=== PATIENT | female | born 1965 | race Caucasian/White ===

== ENCOUNTER → 2018-03-12 | Outpatient (CLI) | payer BC ==
--- NOTE | 2018-03-14 08:13 | BD ---
EXAMINATION TYPE: Axial Bone Density DATE OF EXAM: 03/14/2018 COMPARISON: NONE CLINICAL HISTORY: 52-year-old female one density screening, disorder of bone, Height: 61.7 in Weight: 178 lbs FRAX RISK QUESTIONS: Secondary Osteoporosis: Menopause before 45: yes at age 32 RISK FACTORS Active: yes Diet low in dairy products/other sources of calcium: yes Postmenopausal woman: age 32 MEDICATIONS: Osteoporosis Medications: yes Which medication: Boniva How Lon + yrs Additional Medications: vit D, oxybutynin cl, spironol, actone, pantoprazole, bupropion, ibandronate sodium EXAM MEASUREMENTS: Bone mineral densitometry was performed using the [employer] System. Bone mineral density as measured about the Lumbar spine is: ----- L1-L4(G/cm2): 1.217 T Score Values are as follows: ----- L2: 0.2 ----- L3: 0.3 ----- L4: 0.7 ----- L1-L4: 0.3 Bone mineral density baseline. Bone mineral density about the R hip (g/cm2): 1.063 Bone mineral density about the L hip (g/cm2): 1.047 T Score values are as follows: -----R Neck: 0.2 -----L Neck: 0.1 -----R Total: 0.2 -----L Total: 0.0 Bone mineral density baseline. IMPRESSION: Normal (Values between +1 and -1 indicate normal bone mass). Consider repeating this study in 5 year s or sooner if there is some new clinical indication. NOTE: T-SCORE=SD OF THE YOUNG ADULT MEAN.
--- NOTE | 2018-03-18 10:25 | MM ---
Reason for exam: screening (asymptomatic). Last mammogram was performed 1 year and 3 months ago. History: Patient has history of endometrial cancer at age 32. Benign excisional biopsy of the right breast, 2004. Taking estrogen beginning at age 48. Physical Findings: A clinical breast exam by your physician is recommended on an annual basis and results should be correlated with mammographic findings. MG Screening Mammo w CAD Bilateral CC and MLO view(s) were taken. Prior study comparison: December 13, 2016, mammogram, performed at [place]. June 25, 2015, bilateral MG screening mammo w CAD. The breast tissue is heterogeneously dense. This may lower the sensitivity of mammography. No significant changes when compared with prior studies. ASSESSMENT: Negative, BI-RAD 1 RECOMMENDATION: Routine screening mammogram of both breasts in 1 year.
== END | disposition home or self-care (01) ==
LOC: RADMAMWWP 15:20
PROVIDERS: ATTEND Obstetrics & Gynecology
DX: Z12.31 Encounter for screening mammogram for malignant neoplasm of breast (principal); Z13.820 Encounter for screening for osteoporosis
CPT/HCPCS: 77067; 77080

== ENCOUNTER → 2019-05-16 | Outpatient (CLI) | payer BC ==
--- NOTE | 2019-05-19 08:09 | MM ---
Reason for exam: screening (asymptomatic). Last mammogram was performed 1 year and 2 months ago. History: Patient has history of endometrial cancer at age 32. Benign excisional biopsy of the right breast, 2005. Taking estrogen beginning at age 48. Physical Findings: A clinical breast exam by your physician is recommended on an annual basis and results should be correlated with mammographic findings. MG Screening Mammo w CAD Bilateral CC and MLO view(s) were taken. Prior study comparison: March 14, 2018, bilateral MG screening mammo w CAD. December 13, 2016, mammogram, performed at [place]. The breast tissue is heterogeneously dense. This may lower the sensitivity of mammography. Grouped calcifications left upper outer quadrant now either increased or now better seen. ASSESSMENT: Incomplete: need additional imaging evaluation, BI-RAD 0 RECOMMENDATION: Special view mammogram of the left breast. (magnification) If lesion persists on supplemental views, image directed ultrasound is recommended. [facility] will attempt to contact patient to return for supplemental views and ultrasound if indicated. EZIO
== END | disposition home or self-care (01) ==
LOC: RADMAMWWP 06:51
PROVIDERS: ATTEND Obstetrics & Gynecology
DX: Z12.31 Encounter for screening mammogram for malignant neoplasm of breast (principal)
CPT/HCPCS: 77067

== ENCOUNTER → 2019-05-28 | Outpatient (CLI) | payer BC ==
--- NOTE | 2019-05-28 12:08 | MM ---
Reason for exam: additional evaluation requested from abnormal screening. Last mammogram was performed less than 1 month ago. History: Patient has history of endometrial cancer at age 32. Benign excisional biopsy of the right breast, 2005. Taking estrogen beginning at age 48. Physical Findings: Nurse did not find any significant physical abnormalities on exam. MG 3D Work Up W/Cad LT CC with magnification, ML with magnification, and ML view(s) were taken of the left breast. Prior study comparison: May 16, 2019, bilateral MG screening mammo w CAD. March 14, 2018, bilateral MG screening mammo w CAD. Finding: There are grouped/clustered fine calcifications in the upper outer quadrant, posterior position of the left breast. These results were verbally communicated with the patient and result sheet given to the patient on 05/28/19. ASSESSMENT: Suspicious, BI-RAD 4 RECOMMENDATION: Stereotactic core biopsy of the left breast. (left breast calcifications) Called Dr. Jade with mammographic findings and has scheduled an appointment for the patient for 07/10/19 at 9:[address] Garcia. Biopsy scheduled for 06/19/19 at 10:20. PRELIMINARY REPORT CALLED AND FAXED TO DR. GARCIA ON 05/28/19.
== END | disposition home or self-care (01) ==
LOC: RADMAMWWP 10:12
PROVIDERS: ATTEND Obstetrics & Gynecology
DX: R92.8 Other abnormal and inconclusive findings on diagnostic imaging of breast (principal)
CPT/HCPCS: 77061; 77065

== ENCOUNTER → 2019-07-10 | Day surgery (SDC) | payer BC ==
[2019-06-19 10:20] VITALS: RESP 16; BMI 32.8
[2019-07-10 11:18] VITALS: BP 106/65; PULSE 61; TEMP 98.1
--- NOTE | 2019-07-10 16:35 | MM ---
EXAMINATION TYPE: MG stereo VAD BX LT DATE OF EXAM: 07/10/2019 COMPARISON: 05/16/2019 and 05/28/2019 CLINICAL HISTORY: 54-year-old female with left breast microcalcifications TECHNIQUE: Stereotactic guided core biopsy of the 2:00 left breast. FINDINGS: The procedure of stereotactic guided core biopsy was explained to the patient. Benefits, alternatives, and risks were discussed. An informed consent was then obtained. The shortness pathway for biopsy was chosen. Shortness pathway was a lateral approach. However, calcifications cannot be well-demonstrated in the targeting window. A CC from above approach was utilized. I performed the localization localization followed by the remainder of the procedure. A vacuum assisted biopsy gun was used to obtain multiple core samples. The patient tolerated the procedure well without any immediate complication. The patient was kept in the radiology department for short stay after the procedure and then discharged home in stable condition. Targeted calcifications are identified in specimen mammogram. Post biopsy mammogram shows the clip to appear in satisfactory position relative to the targeted area of concern on the preprocedure images at the 2:00 position. IMPRESSION: SUCCESSFUL, UNCOMPLICATED STEREOTACTIC GUIDED CORE BIOPSY OF 2:00 LEFT BREAST MICROCALCIFICATIONS. INTERMEDIATE SUSPICION. FULL PATHOLOGY RESULTS TO FOLLOW. 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 An appropriately controlled immunohistochemical panel to evaluate the in situ component for microinvasion is performed. Smooth muscle myosin heavy chain (SMMHC), p63 and Calponin document an intact myoepithelial layer around ducts. Lack of diffuse or mosaic CK5/6 staining supports the diagnosis of carcinoma in situ. Recommendation Surgical consult of the left breast. Definitive surgical/medical management. EZIO
== END ==
LOC: RADMAMWWP 06-19 09:48
PROVIDERS: ATTEND Surgery
DX: D05.82 Other specified type of carcinoma in situ of left breast (principal)
CPT/HCPCS: 88305; 88342; 88341; 19081; A4648; J2001

== ENCOUNTER 2019-08-11 11:08 | Day surgery (SDC) | payer BC ==
[2019-08-04 15:51] VITALS: BMI 31.8
[~2019-08-11 11:08] MED LIST: HEPARIN SODIUM,PORCINE 5,000 UNIT/ML 1 ML VIAL SQ ONE; HYDROmorphone 0.5 MG/0.5 ML SYRINGE IVP PRN; LIDOCAINE 1% 20 ML VIAL (10MG/ML) FOR IV START INTRADERMA PRN; ONDANSETRON 4 MG/2 ML VIAL IVP ONE; Pre Op ABX Message 1 EACH MISC MISCELLANE ONE
[2019-08-11] MEDS: LACTATED RINGERS 1,000 ML IV SCH ×2 (11:56→12:17)
[2019-08-11] MEDS ORDERED: ALPRAZolam 0.5 MG TAB PO ONE (12:05)
--- NOTE | 2019-08-11 13:15 | P.GSHP ---
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 She is asymptomatic. Past Medical History Past Medical History: Cancer, GERD/Reflux Additional Past Medical History / Comment(s): LT BREAST CANCER-NEW DX History of Any Multi-Drug Resistant Organisms: None Reported Past Surgical History: Breast Surgery, Section, Hysterectomy Additional Past Surgical History / Comment(s): right breast biopsy 2004-benign, Past Anesthesia/Blood Transfusion Reactions: No Reported Reaction Smoking Status: Never smoker - Past Family History Father Family Medical History: Cancer Medications and Allergies Home Medications Medication Instructions Recorded Confirmed Type Cyanocobalamin (Vitamin B-12) 2,000 mcg PO DAILY 06/10/19 08/04/19 History [Vitamin B-12] FLUoxetine HCL [PROzac] 10 mg PO DAILY 06/10/19 08/04/19 History Ibandronate Sodium 150 mg PO QMONTH 06/10/19 08/04/19 History Pantoprazole [Protonix] 40 mg PO DAILY 06/10/19 08/04/19 History buPROPion HCL [buPROPion HCL SR] 150 mg PO DAILY 06/10/19 08/04/19 History Allergies Allergy/AdvReac Type Severity Reaction Status Date / Time silicone Allergy Rash/Hives Verified 08/11/19 11:51 epinephrine AdvReac Chest Pain Verified 08/11/19 11:51 Surgical - Exam Vital Signs Temp Pulse Resp BP Pulse Ox 98.1 F 68 16 120/64 98 08/11/19 11:58 08/11/19 11:58 08/11/19 11:58 08/11/19 11:58 08/11/19 11:58 Physical exam: General: Well-developed, well-nourished HEENT: Normocephalic, sclerae nonicteric Right breast: No masses, no adenopathy Left breast: No masses, no adenopathy Abdomen: Nontender, nondistended Extremities: No edema Neuro: Alert and oriented Assessment and Plan (1) DCIS (ductal carcinoma in situ) Narrative/Plan: Will proceed with left breast lumpectomy with wire localization. Risks of bleeding, infection, scarring, numbness, dimpling, need for additional surgery, positive margins, seroma reviewed. She understands and wishes to proceed. Current Visit: Yes Status: Acute Code(s): D05.10 - INTRADUCTAL CARCINOMA IN SITU OF UNSPECIFIED BREAST SNOMED Code(s): 258945415
--- NOTE | 2019-08-11 13:16 | P.NAPBC ---
[facility] - [facility] Was patient's case review presented at [facility] tumor board? If no, comment.: No Was patient's pathology reviewed at [facility]? If no, comment.: Yes Was breast conservation surgery offered? If no, comment.: Yes Was sentinel node biopsy offered? If no, comment.: No (na) Was diagnosis confirmed by percutaneous core biopsy? If no, comment.: Yes Is patient mastectomy patient?: No Was a preop referral to reconstructive surgeon offered?: Yes [facility] Comments: 0 Clinical Stage: Stage 0
[2019-08-11] MEDS ORDERED: LIDOCAINE 1% INJ 10MG/ML (20 ML MDV) SQ ONE ×2 (13:46→13:51)
[2019-08-11] MEDS ORDERED: BUPIVACAINE (PF) 0.25% 30 ML VIAL SQ ONE ×2 (14:20→15:05)
[2019-08-11] MEDS ORDERED: KETOROLAC 30 MG/ML 1 ML VIAL ONE (14:41)
[2019-08-11] MEDS ORDERED: PROPOFOL 10 MG/ML 20 ML VIAL IV ONE (14:41)
[2019-08-11] MEDS ORDERED: MIDAZOLAM 2 MG/2 ML VIAL ONE (14:41)
[2019-08-11] MEDS ORDERED: LIDOCAINE 1% INJ 10MG/ML (20 ML MDV) ONE (14:41)
[2019-08-11] MEDS ORDERED: SUCCINYLCHOLINE CHLORIDE 100 MG/5 ML SYR IV ONE (14:41)
[2019-08-11] MEDS ORDERED: fentaNYL (PF) 50 MCG/ML 2 ML AMP ONE (14:41)
[2019-08-11] MEDS ORDERED: SODIUM CHLORIDE 0.9% 50 ML with ceFAZolin 2,000 MG IV ONE ×2 (14:45)
[2019-08-11] MEDS ORDERED: ONDANSETRON 4 MG/2 ML VIAL IVP ONE (15:48)
[2019-08-11 15:58] VITALS: TEMP 97.7
[2019-08-11] MEDS ORDERED: LACTATED RINGERS 1,000 ML IV ONE (16:01)
[2019-08-11 16:32] VITALS: RESP 18
[2019-08-11] MEDS ORDERED: NALOXONE 0.4 MG/ML 1 ML VIAL IV PRN (16:39)
--- NOTE | 2019-08-11 16:41 | P.OP ---
Date of Procedure: 08/11/19 Procedure(s) Performed: PREOPERATIVE DIAGNOSIS: Left breast cancer POSTOPERATIVE DIAGNOSIS: Same PROCEDURE: Left breast lumpectomy with wire localization SURGEON: Jose EBL: 5 mL ANESTHESIA: General COMPLICATIONS: None OPERATIVE PROCEDURE: Patient was placed on the operating room table in the supine position. The patient's breast was prepped and draped in usual sterile fashion. A curvilinear incision was made adjacent to the wire entrance site at the 3:00 location. I followed the wire down into the breast tissue. The breast tissue around the tip of the wire was fully excised using electrocautery. Margins of 1.5 cm to 2 cm were attempted to be achieved. The lumpectomy was painted the 6 appropriately predetermined colors. The specimen was sent for specimen radiogram. The clip was present within the specimen. The subcutaneous tissues were inspected. No bleeding was seen. Clips were used to demarcate the lumpectomy site. The subcutaneous tissues were closed using 3-0 Vicryl sutures. The skin was closed using a running 4-0 Monocryl stitch. Skin glue was then applied. DISPOSITION: Stable to recovery room
[2019-08-11 16:52] VITALS: BP 107/60; PULSE 72
--- NOTE | 2019-08-12 08:37 | MM ---
EXAMINATION TYPE: MG pre op needle loc LT, MG surgical specimen LT DATE OF EXAM: 08/11/2019 COMPARISON: Mammogram July 10, 2019 and older studies. CLINICAL HISTORY: Positive stereo biopsy, papillary carcinoma in situ with an extensive mucinous component TECHNIQUE: Needle localization with wire placement and surgical excision of area of concern in the left breast. FINDINGS: The procedure of needle localization with wire placement and than surgical excision was explained to the patient. Benefits, alternatives, and risks were discussed. An informed consent was then obtained. The shortest pathway for procedure was chosen. Shortest pathway was lateral approach. The overlying skin was prepped and draped in usual sterile fashion. Lidocaine was used as anesthetic into the skin and subcutaneous tissue up to the level of area of concern. A 5 cm needle was used. It was placed via a lateral approach under mammographic guidance. Subsequent 90 degrees mammogram show the needle to be in satisfactory position relative to the targeted area. At this point, wire was placed and the needle was withdrawn. The wire was fixed to patient's skin. Images were marked for surgeon. The patient tolerated the procedure well without any immediate complication. The patient was kept in the radiology department for short stay after the procedure and then taken to surgery for surgical excision. Targeted biopsy clip along with some residual calcifications and wire are identified in specimen mammogram. The patient was kept in hospital for short stay after the procedure and then discharged home in stable condition. IMPRESSION: Successful, uncomplicated needle localization with wire placement and surgical excision of targeted biopsy clip in the left breast, full pathology results to follow. Pathology Results: High Risk LEFT BREAST, NEEDLE LOCALIZATION EXCISION/BIOPSY: Negative for residual duct carcinoma in situ. Residual breast parenchyma shows florid duct hyperplasia, radial scar, usual intra ductal hyperplasia and intraductal papillomatosis. Recommendation Surgical consultation of the left breast. Continued surgical management. EZIO
== END 2019-08-11 17:12 | disposition home or self-care (01) ==
LOC: OR 11:08
PROVIDERS: ATTEND Surgery
DX: D24.2 Benign neoplasm of left breast (principal); Z17.0 Estrogen receptor positive status [ER+]; Z98.891 History of uterine scar from previous surgery; Z90.710 Acquired absence of both cervix and uterus; Z98.890 Other specified postprocedural states; Z85.42 Personal history of malignant neoplasm of other parts of uterus; Z86.19 Personal history of other infectious and parasitic diseases; K21.9 Gastro-esophageal reflux disease without esophagitis; Z79.83 Long term (current) use of bisphosphonates; Z79.899 Other long term (current) drug therapy; Z91.048 Other nonmedicinal substance allergy status; Z88.4 Allergy status to anesthetic agent; F99 Mental disorder, not otherwise specified
CPT/HCPCS: 19301; 88307; 76098; 19281; J2250; J2405; J0690; J2001; J3010; J1885; J0330; J2704

== ENCOUNTER → 2019-10-28 | Outpatient (CLI) | payer BC ==
--- NOTE | 2019-10-28 12:50 | CT ---
EXAMINATION TYPE: CT brain wo con DATE OF EXAM: 10/28/2019 COMPARISON: None HISTORY: Severe GTZ, dizziness CT DLP: 981.7 mGycm Automated exposure control for dose reduction was used. CT of the brain performed using departmental protocol FINDINGS: No abnormality. Brain density is normal. No hydrocephalus or hemorrhage. Calvarium is intact. Paranas al sinuses and mastoid air cells are well aerated. IMPRESSION: NORMAL NONCONTRAST HEAD CT
== END ==
LOC: RADCTMAIN 12:12
PROVIDERS: ATTEND Family Medicine
DX: R51 Headache (principal)
CPT/HCPCS: 70450

== ENCOUNTER 2019-10-30 08:34 | Emergency (ER) | payer BC ==
[2019-10-30 08:39] VITALS: TEMP 98.3
[2019-10-30] MEDS ORDERED: METOCLOPRAMIDE 5 MG/ML 2 ML VIAL IVP STA (08:53)
[2019-10-30] MEDS ORDERED: diphenhydrAMINE 50 MG/ML 1 ML VIAL IVP STA (08:53)
[2019-10-30] MEDS ORDERED: KETOROLAC 30 MG/ML 1 ML VIAL IVP STA (08:53)
[2019-10-30] MEDS ORDERED: SODIUM CHLORIDE 0.9% 1,000 ML IV STA (08:54)
--- NOTE | 2019-10-30 09:00 | ED ---
General Adult HPI - General Chief complaint: Headache Stated complaint: headache Time Seen by Provider: 10/30/19 08:41 Source: patient, RN notes reviewed Mode of arrival: ambulatory Limitations: no limitations - History of Present Illness Initial comments: 54-year-old female with a past medical history of GERD, breast cancer presents to the emergency department for a chief complaint of headache. Patient states she has had a persistent headache for 7 days. Patient states this started last Sunday. States that throughout the day she started to have a mild headache that gradually became a pounding headache. States the headache gradual onset. Denies any maximal intensity at onset. Denies any neck stiffness or pain. Does admit to nausea denies vomiting. States it is painful to look out of the corners of her eyes. Otherwise denies visual changes. States the headache is across the top of her head and on the bilateral temporal areas. Currently rating the pain at an 8 out of 10. States it does go down to a 5 at times. Denies any weakness of the extremities. Patient states she saw her doctor and had an outpatient CT obtained which was normal. Patient did take Imitrex but it did not help. States this does not feel like her normal migraines. Patient has no other complaints at this time including shortness of breath, chest pain, abd ominal pain, nausea or vomiting, or visual changes. - Related Data Home Medications Medication Instructions Recorded Confirmed Cyanocobalamin (Vitamin B-12) 2,000 mcg PO DAILY 06/10/19 08/04/19 [Vitamin B-12] FLUoxetine HCL [PROzac] 10 mg PO DAILY 06/10/19 08/04/19 Ibandronate Sodium 150 mg PO QMONTH 06/10/19 08/04/19 Pantoprazole [Protonix] 40 mg PO DAILY 06/10/19 08/04/19 buPROPion HCL [buPROPion HCL SR] 150 mg PO DAILY 06/10/19 08/04/19 Allergies Allergy/AdvReac Type Severity Reaction Status Date / Time silicone Allergy Rash/Hives Verified 10/30/19 08:39 epinephrine AdvReac Chest Pain Verified 10/30/19 08:39 Review of Systems ROS Statement: Those systems with pertinent positive or pertinent negative responses have been documented in the HPI. ROS Other: All systems not noted in ROS Statement are negative. Past Medical History Past Medical History: Cancer, GERD/Reflux Additional Past Medical History / Comment(s): LT BREAST CANCER-NEW DX uterine ca History of Any Multi-Drug Resistant Organisms: None Reported Past Surgical History: Breast Surgery, Section, Hysterectomy Additional Past Surgical History / Comment(s): right breast biopsy 2005-benign, Past Anesthesia/Blood Transfusion Reactions: No Reported Reaction Past Psychological History: Depression Smoking Status: Never smoker Past Alcohol Use History: Rare Past Drug Use History: None Reported - Past Family History Father Family Medical History: Cancer General Exam Limitations: no limitations General appearance: alert, in no apparent distress Head exam: Present: atraumatic, normocephalic, normal inspection Eye exam: Present: normal appearance, PERRL, EOMI. Absent: scleral icterus, conjunctival injection, periorbital swelling ENT exam: Present: normal exam, normal oropharynx, mucous membranes moist, TM's normal bilaterally, normal external ear exam Neck exam: Present: normal inspection, full ROM. Absent: tenderness, meningismus, lymphadenopathy Respiratory exam: Present: normal lung sounds bilaterally. Absent: respiratory distress, wheezes, rales, rhonchi, stridor Cardiovascular Exam: Present: regular rate, normal rhythm, normal heart sounds. Absent: systolic murmur, diastolic murmur, rubs, gallop, clicks GI/Abdominal exam: Present: soft, normal bowel sounds. Absent: distended, tenderness, guarding, rebound, rigid Neurological exam: Present: alert, oriented X3, normal gait, other (CGS 15) Expanded Patient oriented to: Present: person, place, time Speech: Present: fluid speech Cranial nerves: EOM's Intact: Normal, Tongue Deviation: Normal, Nystagmus: Normal, Facial Sensation: Normal Cerebellar function: Finger to Nose: Normal Upper motor neuron: Pronator Drift: Normal Sensory exam: Upper Extremity Light Touch: Normal, Upper Extremity Pin Prick: Normal, Lower Extremity Pin Prick: Normal, Lower Extremity Temperature: Normal Motor strength exam: RUE: 5, LUE: 5, RLE: 5, LLE: 5 Eye Response: (4) open spontaneously Motor Response: (6) obeys commands Verbal Response: (5) oriented [place] Total: 15 Psychiatric exam: Present: normal affect, normal mood Course Vital Signs 10/30/19 08:36 Temperature 98.3 F Pulse Rate 66 Respiratory 18 Rate Blood Pressure 131/83 O2 Sat by Pulse 95 Oximetry - Reevaluation(s) Reevaluation #1: 10/30/19 09:03 Discussed case in detail with Dr. Weston. Reviewed CT report from 2 days ago which is as follows: CT of the brain was obtained which showed no abnormality. Brain density is normal. No hydrocephalus or hemorrhage. Calvarium is intact. Paranasal sinuses and mastoid air cells are well aerated. Normal noncontrast head CT. Medical Decision Making - Medical Decision Making 54-year-old female presents for headache. Patient was seen and evaluated upon arrival. No focal neurologic deficits. Patient is well-appearing. Currently rating the pain as an 8 out of 10. History of gradual onset. No maximal intensity at onset. No neck pain or stiffness. No fevers or chills. CT was reviewed from 2 days ago and was normal. Patient was given pain medication which included Toradol Reglan Benadryl and fluids here in the emergency department. She had significant improvement in pain. She is currently rating her pain at a 3 out of 10. I did offer further analgesics which she refuses at this time stating she feels much better. She does agree to a steroid as this may help recurrence of headache. I discussed that she needs to follow up with primary care and possibly neurology if this continues. Discussed that she may benefit from an MRI. She will return if she has any worsening symptoms over the weekend.I discussed this case with attending Dr. Weston who agrees with this assessment and treatment plan. Disposition Clinical Impression: Headache Disposition: HOME SELF-CARE Condition: Good Instructions (If sedation given, give patient instructions): Acute Headache (ED) Additional Instructions: Please follow-up with primary care in 1-2 days. You may benefit from MRI. If this continues you may also benefit from seeing a neurologist. If you have worsening symptoms please return to the emergency department. Is patient prescribed a controlled substance at d/c from ED?: No Referrals: Deepak Ang [Primary Care Provider] - 1-2 days Time of Disposition: 10:46
[2019-10-30] MEDS ORDERED: DEXAMETHASONE SOD PHOSPHATE 10 MG/ML 1 ML VIAL IV STA (10:39)
[2019-10-30 11:02] VITALS: BP 125/78; PULSE 62; RESP 20
== END 2019-10-30 11:04 | disposition home or self-care (01) ==
LOC: EC 08:34
DX: R51 Headache (principal); K21.9 Gastro-esophageal reflux disease without esophagitis; F32.9 Major depressive disorder, single episode, unspecified; Z79.899 Other long term (current) drug therapy; Z88.8 Allergy status to other drugs, medicaments and biological substances; Z91.040 Latex allergy status; Z98.890 Other specified postprocedural states; Z85.3 Personal history of malignant neoplasm of breast; Z85.42 Personal history of malignant neoplasm of other parts of uterus
CPT/HCPCS: 96374; 96375 ×3; 99283; J1200; J1100; J2765; J1885

== ENCOUNTER 2019-11-12 10:26 | Emergency (ER) | payer BC ==
[2019-11-12 10:47] VITALS: RESP 18
[2019-11-12] MEDS ORDERED: PROMETHAZINE INJ 25 MG in SODIUM CHLORIDE 0.9% 50 ML IVPB STA (11:37)
[2019-11-12] MEDS ORDERED: SODIUM CHLORIDE 0.9% 500 ML 500 ML IV ONE (11:37)
[2019-11-12] MEDS ORDERED: diphenhydrAMINE 50 MG/ML 1 ML VIAL IVP STA ×2 (11:37→13:13)
[2019-11-12] MEDS ORDERED: KETOROLAC 60 MG/2 ML VIAL IVP STA (11:37)
--- NOTE | 2019-11-12 11:46 | ED ---
General Adult HPI - General Chief complaint: Headache Stated complaint: headache/blurred vision Time Seen by Provider: 11/12/19 10:55 Source: patient, RN notes reviewed, old records reviewed Mode of arrival: ambulatory Limitations: no limitations - History of Present Illness Initial comments: This is a 54-year-old female who complains of a headache since '. Patient states she's had an MRI and CAT scan and they both were normal. Patient states she follow-up with ophthalmology today because she was having some blurred vision only in the morning and he told her her optic nerves showed some edema. He is sent to the emergency department to investigate for possible pseudotumor cerebri. Patient states she has no other problems other than the slight blurred vision and headache. Patient states occasionally she has felt a little off balance as well. Patient denies any near syncopal or syncopal episode. Patient denies any chest pain difficulty breathing first breath per patient any numbness or weakness or facial drooping. Patient denies any speech problem per patient denies any abdominal pain. Patient denies nausea vomiting d iarrhea. - Related Data Home Medications Medication Instructions Recorded Confirmed Cyanocobalamin (Vitamin B-12) 2,000 mcg PO Q48H 06/10/19 11/12/19 [Vitamin B-12] Pantoprazole [Protonix] 40 mg PO DAILY 06/10/19 11/12/19 Oxybutynin Chloride [Ditropan] 5 mg PO DAILY 11/12/19 11/12/19 SUMAtriptan SUCCINATE [Imitrex] 100 mg PO BID PRN 11/12/19 11/12/19 buPROPion HCL [Wellbutrin XL] 150 mg PO DAILY 11/12/19 11/12/19 Allergies Allergy/AdvReac Type Severity Reaction Status Date / Time silicone Allergy Rash/Hives Verified 11/12/19 12:03 epinephrine AdvReac Chest Pain Verified 11/12/19 12:03 Review of Systems ROS Statement: Those systems with pertinent positive or pertinent negative responses have been documented in the HPI. ROS Other: All systems not noted in ROS Statement are negative. Past Medical History Past Medical History: Cancer, GERD/Reflux Additional Past Medical History / Comment(s): LT BREAST CANCER-NEW DX uterine ca History of Any Multi-Drug Resistant Organisms: None Reported Past Surgical History: Breast Surgery, Section, Hysterectomy Additional Past Surgical History / Comment(s): right breast biopsy 2005-benign, Past Anesthesia/Blood Transfusion Reactions: No Reported Reaction Past Psychological History: Depression Smoking Status: Never smoker Past Alcohol Use History: Rare Past Drug Use History: None Reported - Past Family History Father Family Medical History: Cancer General Exam - General Exam Comments Initial Comments: GENERAL: Patient is well-developed and well-nourished. Patient is nontoxic and well- hydrated and is in mild distress. ENT: Neck is soft and supple. No significant lymphadenopathy is noted. Oropharynx is clear. Moist mucous membranes. Neck has full range of motion without eliciting any pain. EYES: The sclera were anicteric and conjunctiva were pink and moist. Extraocular movements were intact and pupils were equal round and reactive to light. Eyelids were unremarkable. PULMONARY: Unlabored respirations. Good breath sounds bilaterally. No audible rales rhonchi or wheezing was noted. CARDIOVASCULAR: There is a regular rate and rhythm without any murmurs gallops or rubs. ABDOMEN: Soft and nontender with normal bowel sounds. SKIN: Skin is clear with no lesions or rashes and otherwise unremarkable. NEUROLOGIC: Patient is alert and oriented x3. Cranial nerves II through XII are grossly intact. Motor and sensory are also intact. Normal speech, volume and content. Symmetrical smile. MUSCULOSKELETAL: Normal extremities with adequate strength and full range of motion. No lower extremity swelling or edema. No calf tenderness. LYMPHATICS: No significant lymphadenopathy is noted PSYCHIATRIC: Normal psychiatric evaluation. Limitations: no limitations Course Vital Signs 11/12/19 11/12/19 10:46 12:13 Temperature 98.3 F Pulse Rate 79 68 Respiratory 18 18 Rate Blood Pressure 117/76 127/79 O2 Sat by Pulse 96 99 Oximetry Medical Decision Making - Medical Decision Making EKG shows sinus bradycardia 59 bpm VT interval 156 QRS 82 QT interval 396 QTC is 392. Patient's EKG shows no ST segment elevation or depression. I spoke with the patient's primary medical care doctor as well as the anesthesiologist and they were going to set up an outpatient lumbar puncture to determine if the patient had pseudotumor cerebri. Patient headache was substantially reduced after medication in the emergency department. Patient understood and will follow-up with primary medical care doctor. Patient has no neurologic deficit while in the emergency department. Disposition Clinical Impression: Chronic headache Disposition: HOME SELF-CARE Condition: Good Instructions (If sedation given, give patient instructions): General Headache (ED) Additional Instructions: Patient is to return to emergency department if she has any neurologic deficit or if there is any new or worsening symptoms. Patient is felt the primary medical care doctor to set up a possible lumbar pun cture as an outpatient. Is patient prescribed a controlled substance at d/c from ED?: No Referrals: Deepak Ang [Primary Care Provider] - 11/13/19
[2019-11-12 13:51] VITALS: BP 128/83; PULSE 73; TEMP 98
== END 2019-11-12 13:49 | disposition home or self-care (01) ==
LOC: EC 10:26
DX: R51 Headache (principal); H53.8 Other visual disturbances; H47.10 Unspecified papilledema; R00.1 Bradycardia, unspecified; K21.9 Gastro-esophageal reflux disease without esophagitis; Z85.3 Personal history of malignant neoplasm of breast; Z85.42 Personal history of malignant neoplasm of other parts of uterus; Z79.899 Other long term (current) drug therapy; Z88.8 Allergy status to other drugs, medicaments and biological substances; Z91.048 Other nonmedicinal substance allergy status
CPT/HCPCS: 99284; 96365; 96375 ×2; 96376; J1200; J2550; J1885

== ENCOUNTER → 2020-06-01 | Outpatient (CLI) | payer BC ==
--- NOTE | 2020-06-01 11:05 | MM ---
Reason for exam: additional evaluation requested from prior study. Last mammogram was performed 1 year ago. History: Patient has history of breast cancer at age 54, has history of high-risk lesion on a previous biopsy at age 54, and has history of endometrial cancer at age 32. High risk MG pre op needle loc LT of the left breast, August 11, 2019. Lumpectomy of the left breast, August 11, 2019. Malignant MG stereo VAD BX LT of the left breast, July 10, 2019. Benign excisional biopsy of the right breast, 2004. Taking estrogen beginning at age 48. Physical Findings: Nurse did not find any significant physical abnormalities on exam. MG 3D Diag Mammo W/Cad BRITTNEY Bilateral CC and MLO view(s) were taken. Prior study comparison: May 28, 2019, left breast MG 3d work up w/cad LT. May 16, 2019, bilateral MG screening mammo w CAD. The breast tissue is heterogeneously dense. This may lower the sensitivity of mammography. Post surgical changes left upper outer quadrant. No significant new findings when compared with previous films. These results were verbally communicated with the patient and result sheet given to the patient on 06/01/20. ASSESSMENT: Benign, BI-RAD 2 RECOMMENDATION: Follow-up diagnostic mammogram of both breasts in 1 year. Manage on a clinical basis with regard to pain.
--- NOTE | 2020-06-01 11:07 | USB ---
Reason for exam: additional evaluation requested from prior study. History: Patient has history of breast cancer at age 54, has history of high-risk lesion on a previous biopsy at age 54, and has history of endometrial cancer at age 32. High risk MG pre op needle loc LT of the left breast, August 11, 2019. Lumpectomy of the left breast, August 11, 2019. Malignant MG stereo VAD BX LT of the left breast, July 10, 2019. Benign excisional biopsy of the right breast, 2004. Taking estrogen beginning at age 48. US Breast BILAT Right complete breast ultrasound includes all four quadrants, the retroareolar region and axilla. Finding demonstrates a 0.7 x 0.4 x 0.5cm cystic cluster at 4 o'clock. Left complete breast ultrasound includes all four quadrants, the retroareolar region and axilla. Finding demonstrates duct type appearance at 5 o'clock. These results were verbally communicated with the patient and result sheet given to the patient on 06/01/20. ASSESSMENT: Probably benign, BI-RAD 3 RECOMMENDATION: Ultrasound of both breasts in 6 months. Manage on a clinical basis with regard to pain.
== END | disposition home or self-care (01) ==
LOC: RADMAMWWP 08:45
PROVIDERS: ATTEND Surgery
DX: N64.4 Mastodynia (principal); Z85.3 Personal history of malignant neoplasm of breast
CPT/HCPCS: 77062; 77066

== ENCOUNTER → 2020-11-30 | Outpatient (CLI) | payer BC ==
--- NOTE | 2020-11-30 11:08 | USB ---
Reason for exam: follow-up at short interval from prior study. History: Patient has history of breast cancer at age 54, has history of high-risk lesion on a previous biopsy at age 54, and has history of endometrial cancer at age 32. High risk MG pre op needle loc LT of the left breast, August 11, 2019. Lumpectomy of the left breast, August 11, 2019. Malignant MG stereo VAD BX LT of the left breast, July 10, 2019. Benign excisional biopsy of the right breast, 2004. Taking estrogen beginning at age 48. Physical Findings: Nurse did not find any significant physical abnormalities on exam. US Breast BILAT Right complete breast ultrasound includes all four quadrants, the retroareolar region and axilla. Finding demonstrates a 5 x 2 x 7mm oval, mixed lesion at 3 o'clock and duct ectasia at the posterior nipple. Left complete breast ultrasound includes all four quadrants, the retroareolar region and axilla. Finding demonstrates duct ectasia at the posterior nipple. These results were verbally communicated with the patient and result sheet given to the patient on 11/30/20. ASSESSMENT: Probably benign, BI-RAD 3 RECOMMENDATION: Ultrasound of the right breast in 6 months.
== END | disposition home or self-care (01) ==
LOC: RADUSWWP 08:58
PROVIDERS: ATTEND Surgery
DX: N60.41 Mammary duct ectasia of right breast (principal); N60.42 Mammary duct ectasia of left breast; N64.89 Other specified disorders of breast; Z85.3 Personal history of malignant neoplasm of breast

== ENCOUNTER → 2021-06-02 | Outpatient (CLI) | payer BC ==
--- NOTE | 2021-06-02 11:46 | MM ---
Reason for exam: additional evaluation requested from prior study. Last mammogram was performed 1 year ago. History: Patient has history of breast cancer at age 54, has history of high-risk lesion on a previous biopsy at age 54, and has history of endometrial cancer at age 32. High risk MG pre op needle loc LT of the left breast, August 11, 2019. Lumpectomy of the left breast, August 11, 2019. Malignant MG stereo VAD BX LT of the left breast, July 10, 2019. Benign excisional biopsy of the right breast, 2004. Physical Findings: Nurse did not find any significant physical abnormalities on exam. MG 3D Diag Mammo W/Cad BRITTNEY Bilateral CC and MLO view(s) were taken. Prior study comparison: June 01, 2020, bilateral MG 3d diag mammo w/cad [facility]. May 28, 2019, left breast MG 3d work up w/cad LT. May 16, 2019, bilateral MG screening mammo w CAD. March 14, 2018, bilateral MG screening mammo w CAD. The breast tissue is heterogeneously dense. This may lower the sensitivity of mammography. No significant new findings when compared with previous films. These results were verbally communicated with the patient and result sheet given to the patient on 06/02/21. ASSESSMENT: Benign, BI-RAD 2 RECOMMENDATION: Follow-up diagnostic mammogram of both breasts in 1 year.
== END | disposition home or self-care (01) ==
LOC: RADMAMWWP 10:40
PROVIDERS: ATTEND Surgery
DX: R92.8 Other abnormal and inconclusive findings on diagnostic imaging of breast (principal); Z85.3 Personal history of malignant neoplasm of breast
CPT/HCPCS: 77062; 77066

== ENCOUNTER → 2022-01-13 | Outpatient (CLI) | payer BC ==
--- NOTE | 2022-01-13 14:20 | MM ---
Reason for exam: follow-up at short interval from prior study. Last mammogram was performed 7 months ago. History: Patient has history of breast cancer at age 54, has history of high-risk lesion on a previous biopsy at age 54, and has history of endometrial cancer at age 32. High risk MG pre op needle loc LT of the left breast, August 11, 2019. Lumpectomy of the left breast, August 11, 2019. Malignant MG stereo VAD BX LT of the left breast, July 10, 2019. Benign excisional biopsy of the right breast, 2004. Physical Findings: A clinical breast exam by your physician is recommended on an annual basis and results should be correlated with mammographic findings. MG 3D Diag Mammo W/Cad LT CC and MLO view(s) were taken of the left breast. Prior study comparison: June 02, 2021, bilateral MG 3d diag mammo w/cad BRITTNEY. June 01, 2020, bilateral MG 3d diag mammo w/cad BR[facility]NEY. The breast tissue is heterogeneously dense. This may lower the sensitivity of mammography. There is no discrete abnormality including area of concern. Stable post operative changes left breast. No significant new findings when compared with previous films. Results were given to the patient verbally at the time of the exam. ASSESSMENT: Incomplete: need additional imaging evaluation, BI-RAD 0 RECOMMENDATION: Ultrasound of the left breast.
--- NOTE | 2022-01-13 14:21 | USB ---
History: Patient has history of breast cancer at age 54, has history of high-risk lesion on a previous biopsy at age 54, and has history of endometrial cancer at age 32. High risk MG pre op needle loc LT of the left breast, August 11, 2019. Lumpectomy of the left breast, August 11, 2019. Malignant MG stereo VAD BX LT of the left breast, July 10, 2019. Benign excisional biopsy of the right breast, 2004. Physical Findings: A clinical breast exam by your physician is recommended on an annual basis and results should be correlated with mammographic findings. US Breast Limited LT Left limited breast ultrasound including focal area of concern, retroareolar and axilla demonstrates mildly prominent ducts. Results were given to the patient verbally at the time of the exam. ASSESSMENT: Benign, BI-RAD 2 RECOMMENDATION: Follow-up diagnostic mammogram of both breasts in 4 months. Back on schedule for May 2022.
== END | disposition home or self-care (01) ==
LOC: RADMAMWWP 13:22
PROVIDERS: ATTEND Surgery
DX: N63.0 Unspecified lump in unspecified breast (principal)
CPT/HCPCS: 77061; 77065

== ENCOUNTER → 2023-01-02 | Outpatient (CLI) | payer BC ==
[2023-01-02 11:03] LABS: HCT 45.2 % (37.2-46.3); HGB 14.7 g/dL (12.0-15.0); MCH 30.6 pg (27.0-32.0); MCHC 32.5 g/dL (32.0-37.0); Mean Platelet Volume 10.8 fL (9.5-12.2); NRBC Per 100 WBC 0 /100 WBCS (0.0-0.0); Platelet Count 330 X 10*3/uL (140-440); RBC 4.81 X 10*6/uL (4.10-5.20); RDW 12.7 % (11.5-14.5); WBC 6.61 X 10*3/uL (4.50-10.00)
[2023-01-02 11:20] LABS: Estradiol 12.9 pg/mL; Luteinizing Hormone 43.9 mIU/mL
[2023-01-02 11:21] LABS: ALT 28 U/L (8-44); AST 29 U/L (13-35); African American GFR (CKD) 95.5 (60.0-200.0); Albumin 4.4 g/dL (3.8-4.9); Albumin/Globulin Ratio 1.63 (1.60-3.17); Alkaline Phosphatase 98 U/L (41-126); BUN/Creat Ratio 12.25 Ratio (12.00-20.00); Blood Urea Nitrogen 9.8 mg/dL (9.0-27.0); Calcium 9.6 mg/dL (8.7-10.3); Carbon Dioxide 24.5 mmol/L (20.0-27.5); Chloride 103 mmol/L (96-109); Chol/HDL Ratio 3.48 Ratio; Follicle Stimulating Hormone 53.4 mIU/mL; Globulin 2.7 g/dL (1.6-3.3); Glucose 86 mg/dL (70-110); Non-African American GFR(CKD) 82.4 (60.0-200.0); Potassium 4.8 mmol/L (3.5-5.5); Sodium 141 mmol/L (135-145); Total Protein 7.1 g/dL (6.2-8.2)
== END | disposition home or self-care (01) ==
LOC: LABWHC1 07:25
PROVIDERS: ATTEND Obstetrics & Gynecology
DX: Z13.220 Encounter for screening for lipoid disorders (principal); Z13.29 Encounter for screening for other suspected endocrine disorder; R53.83 Other fatigue; R10.2 Pelvic and perineal pain
CPT/HCPCS: 36415; 80053; 80061; 82670; 83001; 83002; 83036; 84439; 84443; 84479; 85027

== ENCOUNTER → 2023-09-18 | Outpatient (CLI) | payer BC | END | disposition home or self-care (01) | LOC: LABWHC1 11:22 | PROVIDERS: ATTEND Internal Medicine | DX: R25.1 Tremor, unspecified (principal) | CPT/HCPCS: 36415; 83655 ==

== ENCOUNTER → 2023-10-08 | Outpatient (CLI) | payer BC ==
--- NOTE | 2023-10-09 08:21 | MM ---
Reason for Exam: Screening (asymptomatic). Last mammogram was performed 2 year(s) and 4 month(s) ago. Patient History: Menarche at age 10. First Full-Term at age 22. Hysterectomy at age 32. Patient has history of breast feeding. Endometrial cancer, age 32. Breast cancer, left, age 54. Patient used Hormonal Contraceptives for 6 years. 2004, Benign Excisional Biopsy on the right side. 08/11/2019, Lumpectomy on the Left side. 08/11/2019, High risk Core Biopsy on the left side. 07/10/2019, Malignant Core Biopsy on the left side. Prior Study Comparison: 06/01/2020 Bilateral Diagnostic Mammogram, [facility]. 06/02/2021 Bilateral Diagnostic Mammogram, [facility]. 01/13/2022 Left Diagnostic Mammogram, [facility]. Tissue Density: The breast tissue is heterogeneously dense. This may lower the sensitivity of mammography. Findings: Analyzed By CAD. There is no suspicious group of microcalcifications or new suspicious mass in either breast. Stable postoperative changes left breast. Overall Assessment: Benign, BI-RAD 2 Management: Screening Mammogram of both breasts in 1 year. . Patient should continue monthly self-breast exams. A clinical breast exam by your physician is recommended on an annual basis. This exam should not preclude additional follow-up of suspicious palpable abnormalities. Note on Dionna scores and lifetime risk: 1. A Dionna score greater than 3% is considered moderate risk. If this is the case, consider specialist referral to assess eligibility for a risk reducing agent. 2. If overall lifetime risk for the development of breast cancer is 20% or higher, the patient may qualify for future screening with alternating mammogram and breast MRI. Electronically signed and approved by: Luis Eduardo Ugarte M.D. Radiologis
== END | disposition home or self-care (01) ==
LOC: RADMAMWWP 13:51
PROVIDERS: ATTEND Internal Medicine
DX: Z12.31 Encounter for screening mammogram for malignant neoplasm of breast (principal)
CPT/HCPCS: 77063; 77067

== ENCOUNTER → 2024-11-17 | Outpatient (CLI) | payer BC ==
--- NOTE | 2024-11-17 11:42 | XR ---
EXAMINATION TYPE: XR chest 2V DATE OF EXAM: 11/17/2024 11:20 AM COMPARISON: none CLINICAL INDICATION: Female, 59 years old with history of R05.9 COUGH; TECHNIQUE: XR chest 2V Frontal and lateral views of the chest. FINDINGS: Lungs/Pleura: There is no evidence of pleural effusion, focal consolidation, or pneumothorax. Pulmonary vascularity: Unremarkable. Heart/mediastinum: Cardiomediastinal silhouette is unremarkable. Musculoskeletal: No acute osseous pathology. Other findings: None IMPRESSION: No acute cardiopulmonary disease/process. [facility], , 11/17/2024 11:39 AM
== END | disposition home or self-care (01) ==
LOC: RADXRMAIN 11:05
PROVIDERS: ATTEND Internal Medicine
DX: R05.9 Cough, unspecified (principal)
CPT/HCPCS: 71046

== ENCOUNTER → 2024-12-05 | Outpatient (CLI) | payer BC ==
--- NOTE | 2024-12-07 18:08 | BD ---
EXAMINATION TYPE: Axial Bone Density DATE OF EXAM: 12/05/2024 CLINICAL HISTORY: 59 years old Female. ICD-10 CODE: N95.1 MENOPAUSAL AND FEMALE CLIMATE , Additional History: Height: 61.5 Weight: 189 FRAX RISK QUESTIONS: Family History (Parent hip fracture): no History of Fracture in Adulthood: no Secondary Osteoporosis: no 3. Menopause before 45: no RISK FACTORS HISTORY OF: Surgery to Spine/Hip(right/left)/Wrist (right/left): no MEDICATIONS: Thyroid Medications: no Osteoporosis Medications: no EXAM MEASUREMENTS: Bone mineral densitometry was performed using the [employer] System. Bone mineral density as measured about the Lumbar spine is: ----- L1-L4(G/cm2): 1.150 T Score Values are as follows: ----- L1: -0.8 ----- L2: -0.7 ----- L3: -0.2 ----- L4: 0.5 ----- L1-L4: -0.2 Z Score Values are as follows: ----- L1: -0.4 ----- L2: -0.3 ----- L3: 0.1 ----- L4: 0.8 ----- L1-L4: 0.1 Bone mineral density has: Decreased -2.6% since study of: 03/12/2018 Bone mineral density about the R hip (g/cm2): 0.946 Bone mineral density about the L hip (g/cm2): 0.920 T Score values are as follows: -----R Neck: -1.2 -----L Neck: -1.1 -----R Total: -0.5 -----L Total: -0.7 Z Score values are as follows: -----R Neck: -0.5 -----L Neck: -0.3 -----R Total: -0.1 -----L Total: -0.4 Bone mineral density has: Decreased -8.9% since study of: 03/12/2018 FRAX%s: The graph provided illustrates a 3.9% chance for a major osteoporotic fx and a 0.5% chance fo r the hips probability for fx in 10 years time. IMPRESSION: Normal (Values between +1 and -1 indicate normal bone mass). Consider repeating this study in 5 year s or sooner if there is some new clinical indication. NOTE: T-SCORE=SD OF THE YOUNG ADULT MEAN. [facility], , 12/07/2024 6:06 PM
--- NOTE | 2024-12-08 07:28 | MM ---
Reason for Exam: Screening (asymptomatic). Last mammogram was performed 1 year(s) and 2 month(s) ago. Patient History: Menarche at age 10. First Full-Term at age 22. Hysterectomy at age 32. Patient has history of breast feeding. Endometrial cancer, age 32. Breast cancer, left, age 54. Patient used Hormonal Contraceptives for 6 years. 2004, Benign Excisional Biopsy on the right side. 08/11/2019, Lumpectomy on the Left side. 08/11/2019, High risk Core Biopsy on the left side. 07/10/2019, Malignant Core Biopsy on the left side. Prior Study Comparison: 06/02/2021 Bilateral Diagnostic Mammogram, [facility]. 01/13/2022 Left Diagnostic Mammogram, [facility]. 10/08/2023 Bilateral MG 3D screening mammo w/cad, [facility]. Tissue Density: The breasts are heterogeneously dense, which may obscure small masses. Findings: Analyzed By CAD. Nodular density upper right breast 6 cm from the nipple. Additional views are recommended. Postlumpectomy changes left breast without recurrent mass. No suspicious microcalcifications are present. Overall Assessment: Incomplete: need additional imaging evaluation, BI-RAD 0 Management: Diagnostic Mammogram of the right breast. . Patient should continue monthly self-breast exams. A clinical breast exam by your physician is recommended on an annual basis. This exam should not preclude additional follow-up of suspicious palpable abnormalities. Note on Dionna scores and lifetime risk: 1. A Dionna score greater than 3% is considered moderate risk. If this is the case, consider specialist referral to assess eligibility for a risk reducing agent. 2. If overall lifetime risk for the development of breast cancer is 20% or higher, the patient may qualify for future screening with alternating mammogram and breast MRI. [facility], , 12/08/2024 7:25 AM. Electronically signed and approved by: Luis Eduardo Ugarte M.D. Radiologis
== END | disposition home or self-care (01) ==
LOC: RADBDWWP 14:49
PROVIDERS: ATTEND Internal Medicine
DX: Z12.31 Encounter for screening mammogram for malignant neoplasm of breast (principal); N95.1 Menopausal and female climacteric states; M85.89 Other specified disorders of bone density and structure, multiple sites; R92.333 Mammographic heterogeneous density, bilateral breasts; Z85.3 Personal history of malignant neoplasm of breast; Z92.0 Personal history of contraception; Z98.890 Other specified postprocedural states
CPT/HCPCS: 77063; 77067; 77080

== ENCOUNTER → 2024-12-11 | Outpatient (CLI) | payer BC ==
--- NOTE | 2024-12-11 12:06 | MM ---
Reason for Exam: Additional evaluation requested from abnormal screening. Last screening mammogram was performed less than 1 month ago. Patient History: Menarche at age 10. First Full-Term at age 22. Hysterectomy at age 32. Patient has history of breast feeding. Endometrial cancer, age 32. Breast cancer, left, age 54. Patient used Hormonal Contraceptives for 6 years. 2004, Benign Excisional Biopsy on the right side. 08/11/2019, Lumpectomy on the Left side. 08/11/2019, High risk Core Biopsy on the left side. 07/10/2019, Malignant Core Biopsy on the left side. Prior Study Comparison: 06/02/2021 Bilateral Diagnostic Mammogram, [facility]. 01/13/2022 Left Diagnostic Mammogram, [facility]. 01/13/2022 Left Diagnostic Ultrasound, [facility]. 10/08/2023 Bilateral MG 3D screening mammo w/cad, [facility]. 12/05/2024 Bilateral MG 3D screening mammo w/cad, [facility]. Tissue Density: Right: The breasts are heterogeneously dense, which may obscure small masses. Findings: Analyzed By CAD. Persistent nodular density at the approximate 5:00 location right breast 3 cm from the nipple measuring 7.5 mm. Ultrasound is recommended. Overall Assessment: Incomplete: need additional imaging evaluation, BI-RAD 0 Management: Diagnostic Breast Ultrasound of the right breast. . Results were given to the patient verbally at the time of exam. Patient should continue monthly self-breast exams. A clinical breast exam by your physician is recommended on an annual basis. This exam should not preclude additional follow-up of suspicious palpable abnormalities. Note on Dionna scores and lifetime risk: 1. A Dionna score greater than 3% is considered moderate risk. If this is the case, consider specialist referral to assess eligibility for a risk reducing agent. 2. If overall lifetime risk for the development of breast cancer is 20% or higher, the patient may qualify for future screening with alternating mammogram and breast MRI. [facility], , 12/11/2024 12:04 PM. Electronically signed and approved by: Luis Eduardo Ugarte M.D. Radiologis
--- NOTE | 2024-12-11 12:47 | USB ---
Reason for Exam: Additional evaluation requested from abnormal screening. Patient History: Menarche at age 10. First Full-Term at age 22. Hysterectomy at age 32. Patient has history of breast feeding. Endometrial cancer, age 32. Breast cancer, left, age 54. Patient used Hormonal Contraceptives for 6 years. 2004, Benign Excisional Biopsy on the right side. 08/11/2019, Lumpectomy on the Left side. 08/11/2019, High risk Core Biopsy on the left side. 07/10/2019, Malignant Core Biopsy on the left side. Technique: Method: Targeted. Prior Study Comparison: 01/13/2022 Left Diagnostic Mammogram, [facility]. 10/08/2023 Bilateral MG 3D screening mammo w/cad, [facility]. 12/05/2024 Bilateral MG 3D screening mammo w/cad, [facility]. Findings: The axilla of the right breast and the retroareolar of the right breast were scanned. A complete US of all four quadrants of the breast and retro-areolar region were reviewed. Probable cluster of cysts noted at the right 4:00 location 3 cm from the nipple measuring 6 x 7 x 3 mm. Mildly prominent ducts are noted. Six-month follow-up is advised. No distinct solid mass appreciated with certainty. Overall Assessment: Probably benign, BI-RAD 3 Management: Diagnostic Breast Ultrasound of the right breast in 6 months. A clinical breast exam by your physician is recommended on an annual basis and results should be correlated with mammographic findings. This exam should not preclude additional follow-up of suspicious palpable abnormalities. Results were given to the patient verbally at the time of exam. [facility], , 12/11/2024 12:31 PM. Electronically signed and approved by: Luis Eduardo Ugarte M.D. Radiologis
== END | disposition home or self-care (01) ==
LOC: RADMAMWWP 11:35
PROVIDERS: ATTEND Internal Medicine
DX: R92.8 Other abnormal and inconclusive findings on diagnostic imaging of breast (principal); R92.331 Mammographic heterogeneous density, right breast; Z80.3 Family history of malignant neoplasm of breast; Z92.0 Personal history of contraception
CPT/HCPCS: 77061; 77065